=== PATIENT | female | born 1990 | race Caucasian/White ===

== ENCOUNTER 2022-10-14 12:48 | Emergency (ER) | payer BC ==
[~2022-10-14] VITALS: Ht 167.6 cm; Wt 72.6 kg
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
--- NOTE | 2022-10-14 14:02 | NUR ---
URINE COLLECTED AND SENT TO THE LAB
--- NOTE | 2022-10-14 14:46 | NUR ---
the patient is taken to ct
--- NOTE | 2022-10-14 15:00 | NUR ---
THE PATIENT IS BACK FROM CT VIA [facility]
[2022-10-14] MEDS ORDERED: CYCL5TAB PO (16:27)
[2022-10-14] MEDS ORDERED: NAPR-1009 PO (16:27)
--- NOTE | 2022-10-14 16:37 | NUR ---
Patient discharged to home in stable condition. Written and verbal after care instructions given. Patient verbalizes understanding of instruction.
[2022-10-14 16:38] VITALS: BP 112/72
== END 2022-10-14 16:38 | disposition home or self-care (01) ==
LOC: ER 12:48
DX: S16.1XXA Strain of muscle, fascia and tendon at neck level, initial encounter (principal); R51.9 Headache, unspecified; M25.551 Pain in right hip; M54.50 Low back pain, unspecified; Z79.899 Other long term (current) drug therapy; V49.9XXA Car occupant (driver) (passenger) injured in unspecified traffic accident, initial encounter; Y93.89 Activity, other specified; Y92.89 Other specified places as the place of occurrence of the external cause; Y99.8 Other external cause status
CPT/HCPCS: 70450-TC; 71045-TC; 72125-TC; 72131-TC; 73502; 84703-TC